=== PATIENT | male | born 1990 | race Caucasian/White ===

== ENCOUNTER 2017-03-02 18:11 | Emergency (ER) | payer SELFPAY ==
[~2017-03-02] VITALS: Ht 157.5 cm; Wt 67.9 kg
[2017-03-02 18:18] VITALS: Ht 157.5 cm; Wt 67.9 kg
[2017-03-02] MEDS ORDERED: ONDANSETRON (ODT) 4 MG TAB ODT STA (18:59)
[2017-03-02] MEDS ORDERED: HYDROCODONE/APAP (5/325) TAB PO ONE (19:00)
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
[2017-03-02] MEDS ORDERED: IBUP-1542 PO (21:17)
[2017-03-02] MEDS ORDERED: HYDR-906 PO (21:17)
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
== END 2017-03-02 21:43 | disposition home or self-care (01) ==
LOC: FTE 18:11
DX: R10.84 Generalized abdominal pain (principal)
CPT/HCPCS: 71100; 76705